=== PATIENT | female | born 1965 | race Caucasian/White ===

== ENCOUNTER → 2019-06-29 | Outpatient (CLI) | payer SELFPAY ==
[2019-06-29 10:25] LABS: Basophils % (A) 1 %; Eosinophils # (A) 0.3 k/uL (0-0.7); Eosinophils % (A) 3 %; HCT 44.2 % (34.0-46.0); HGB 14.2 gm/dL (11.4-16.0); Lymphocytes # (A) 2.6 k/uL (1.0-4.8); Lymphocytes % (A) 33 %; MCH 31.3 pg (25.0-35.0); MCHC 32.2 g/dL (31.0-37.0); MCV 97.2 fL (80.0-100.0); Mean Platelet Volume 7.7; Monocytes # (A) 0.4 k/uL (0-1.0); Monocytes % (A) 5 %; Neutrophils # (A) 4.3 k/uL (1.3-7.7); Neutrophils % (A) 56 %; Platelet Count 224 k/uL (150-450); RBC 4.54 m/uL (3.80-5.40); RDW 12.8 % (11.5-15.5); WBC 7.6 k/uL (3.8-10.6)
== END | disposition home or self-care (01) ==
LOC: LABPAT 09:23
PROVIDERS: ATTEND Obstetrics & Gynecology
DX: Z01.818 Encounter for other preprocedural examination (principal); Z01.812 Encounter for preprocedural laboratory examination
CPT/HCPCS: 36415; 85025; 93005

== ENCOUNTER 2019-07-04 06:18 | Day surgery (SDC) | payer SELFPAY ==
[2019-07-02 09:22] VITALS: BMI 22.9
--- NOTE | 2019-07-03 19:35 | P.HPOB ---
History of Present Illness H&P Date: 07/03/19 Chief Complaint: Postmenopausal bleeding This is a 54-year-old female 3 para 2 who presents for dilation and curettage with hysteroscopy secondary to postmenopausal bleeding and endometrial thickening on ultrasound. She states she has been bleeding almost daily for the fast 5-6 months. She goes through up proximally 3-4 pads daily. She states the bleeding is anywhere from bright red to brownish in color. She denies any pain or cramping. Pelvic ultrasound was performed and showed a uterus measuring 6.5 x 3.8 x 4.8 cm with an endometrial thickness of 0.8 cm and a small fibroid approximate 2 cm noted. Both ovaries appeared normal. She denies any precipita ting event or medication prior to the bleeding starting. Her last menstrual period was previously July 2017. She does experience some night sweats but no hot flashes. Obstetrical history: . History of 2 vaginal deliveries and 1 miscarriage at 16 weeks. Gynecologic history: No history of sexual transmitted diseases. Onset of menses was at age 12 and last menstrual period was July 2017. Social history: She is . She works at a home. Review of Systems Constitutional: Reports night sweats, Denies chills, Denies fever Eyes: denies blurred vision, denies pain Ears, nose, mouth and throat: Denies headache, Denies sore throat Cardiovascular: Denies chest pain, Denies shortness of breath Respiratory: Denies cough Gastrointestinal: Denies abdominal pain, Denies diarrhea, Denies nausea, Denies vomiting Genitourinary: Reports abnormal vaginal bleeding, Denies pelvic pain Menstruation: Reports postmenopausal Musculoskeletal: Denies myalgias Integumentary: Denies pruritus, Denies rash Neurological: Denies numbness, Denies weakness Psychiatric: Denies anxiety, Denies depression Past Medical History Past Medical History: Cancer, Thyroid Disorder Additional Past Medical History / Comment(s): hx. thyroid cancer 16 yrs. ago-tx. w/surgery & radiation, post menopausal bleeding History of Any Multi-Drug Resistant Organisms: None Reported Past Surgical History: Tonsillectomy Additional Past Surgical History / Comment(s): total thyroidectomy Past Anesthesia/Blood Transfusion Reactions: Postoperative Nausea & Vomiting (PONV) Past Psychological History: Anxiety, Depression Smoking Status: Former smoker Past Alcohol Use History: Rare Past Drug Use History: None Reported - Past Family History Mother Family Medical History: Cancer Additional Family Medical History / Comment(s): ovarian Medications and Allergies Home Medications Medication Instructions Recorded Confirmed Type Levothyroxine Sodium [Synthroid] 137 mcg PO DAILY 07/02/19 07/02/19 History Allergies Allergy/AdvReac Type Severity Reaction Status Date / Time No Known Allergies Allergy Verified 07/02/19 09:04 Exam Osteopathic Statement: *. No significant issues noted on an osteopathic structural exam other than those noted in the History and Physical/Consult. HEENT: Within normal limits Heart: Regular rate and rhythm Lungs: Clear to auscultation bilaterally Abdomen: Soft, nontender Pelvic exam: Uterus is mid position, nontender, with no adnexal masses or tenderness palpated. Scant bloody discharge is noted from the cervix. Extremities: Negative Homans Assessment and Plan (1) Postmenopausal bleeding Status: Acute Code(s): N95.0 - POSTMENOPAUSAL BLEEDING SNOMED Code(s): 53384221 (2) Endometrial thickening on ultrasound Status: Acute Code(s): R93.89 - ABNORMAL FINDINGS ON DX IMAGING OF OTH BODY STRUCTURES SNOMED Code(s): 452049214 Plan: Proceed with dilation and curettage with hysteroscopy. I have discussed the risks, benefits, and alternative therapies for the above- mentioned procedure and for both sedation/anesthesia as well as necessary blood products administration, if indicated, as they pertain to this patient. The patient has indicated her understanding and acceptance of the risks and procedures discussed.
[~2019-07-04 06:18] MED LIST: DEXAMETHASONE SOD PHOSPHATE 10 MG/ML 1 ML VIAL IV ONE; LACTATED RINGERS 1,000 ML IV SCH; LIDOCAINE 1% (10MG/ML) FOR IV START INTRADERMA PRN; Pre Op ABX Message 1 EACH MISC MISCELLANE ONE; fentaNYL (PF) 50 MCG/ML 2 ML AMP IV PRN
[2019-07-04 07:00] VITALS: RESP 16
[2019-07-04] MEDS ORDERED: ONDANSETRON 4 MG/2 ML VIAL IVP ONE (07:06)
[2019-07-04] MEDS ORDERED: ePHEDrine SULFATE/0.9% NACL/PF 50 MG/5 ML SYRINGE IV ONE (07:26)
[2019-07-04] MEDS ORDERED: DILTIAZEM 100 MG VIAL.PORT IV ONE (07:26)
[2019-07-04] MEDS ORDERED: KETOROLAC 30 MG/ML 1 ML VIAL ONE (07:26)
[2019-07-04] MEDS ORDERED: LIDOCAINE 1% INJ 10MG/ML (20 ML MDV) ONE (07:26)
[2019-07-04] MEDS ORDERED: MIDAZOLAM 2 MG/2 ML VIAL ONE (07:26)
[2019-07-04] MEDS ORDERED: PROPOFOL 10 MG/ML 20 ML VIAL IV ONE (07:26)
--- NOTE | 2019-07-04 07:54 | P.OP ---
Date of Procedure: 07/04/19 Preoperative Diagnosis: Postmenopausal bleeding Endometrial thickening Postoperative Diagnosis: Same Procedure(s) Performed: Dilation and curettage with hysteroscopy Anesthesia: other (Mask general) Surgeon: Harini Ochoa Estimated Blood Loss (ml): 2 Pathology: other (Endometrial curettings) Condition: stable Disposition: same day Indications for Procedure: This is a 54-year-old female 3 para 2 who presents for dilation and curettage with hysteroscopy secondary to postmenopausal bleeding and endometrial thickening on ultrasound. She states she has been bleeding almost daily for the fast 5-6 months. She goes through up proximally 3-4 pads daily. She states the bleeding is anywhere from bright red to brownish in color. She denies any pain or cramping. Pelvic ultrasound was performed and showed a uterus measuring 6.5 x 3.8 x 4.8 cm with an endometrial thickness of 0.8 cm and a small fibroid approximate 2 cm noted. Both ovaries appeared normal. She denies any precipitating event or medication prior to the bleeding starting. Her last menstrual period was previously July 2017. She does experience some night sweats but no hot flashes. Operative Findings: Uterus is retroverted, sounded to 7 cm. A moderate amount of endometrial curettings are obtained. A dyssynchronous endometrial pattern is noted. Both tubal ostia are visualized. Description of Procedure: The patient is taken to the operating room she is placed in the dorsal lithotomy position. She is prepped and draped in the normal sterile fashion. Her bladder is drained with a catheter. Examination is performed under anesthesia. Uterus is sounded be retroverted, with no adnexal masses palpated. Next a weighted speculum was placed in the patient's vagina and a right angle retractor was used to visualize the cervix. The anterior lip of the cervix is grasped with a single-tooth tenaculum. Next the uterus is sounded to 7 cm. Cervix is gently dilated with Cadet dilators until a hysteroscope could be passed. Hysteroscopy is performed using normal saline. The above noted findings are made and pictures are taken. Next a polyp forceps was introduced with a moderate amount of tissue obtained. Next a medium-size sharp curet was introduced and sharp curettage was performed until a gritty texture was noted. A moderate amount of endometrial curettings were obtained. All instruments are removed from the vagina single-tooth tenaculum is removed no active bleeding is noted. All sponge counts are correct. The patient is then taken to recovery room in stable condition.
[2019-07-04 08:04] VITALS: TEMP 97.6
[2019-07-04 08:32] VITALS: BP 94/51
[2019-07-04 09:01] VITALS: PULSE 88
== END 2019-07-04 09:29 | disposition home or self-care (01) ==
LOC: OR 06:18
PROVIDERS: ATTEND Obstetrics & Gynecology
DX: C54.1 Malignant neoplasm of endometrium (principal); N95.0 Postmenopausal bleeding; N85.4 Malposition of uterus; E07.9 Disorder of thyroid, unspecified; E89.0 Postprocedural hypothyroidism; F41.9 Anxiety disorder, unspecified; F32.9 Major depressive disorder, single episode, unspecified; Z87.891 Personal history of nicotine dependence; Z79.890 Hormone replacement therapy; Z85.850 Personal history of malignant neoplasm of thyroid; Z92.3 Personal history of irradiation; Z90.89 Acquired absence of other organs; Z80.41 Family history of malignant neoplasm of ovary
CPT/HCPCS: 88305; 58558; J2250; J1100; J2405; J2001; J1885; J2704

== ENCOUNTER → 2019-08-01 | Outpatient (CLI) | payer SELFPAY ==
--- NOTE | 2019-08-01 08:22 | XR ---
EXAMINATION TYPE: XR chest 2V DATE OF EXAM: 08/01/2019 COMPARISON: NONE HISTORY: Endometrial carcinoma. Preoperative chest x-ray. TECHNIQUE: Frontal and lateral views of the chest are obtained. FINDINGS: There is no focal air space opacity, pleural effusion, or pneumothorax seen. The cardiac silhouette size is within normal limits. The osseous structures are intact. Very minimal degenerati ve change of the spine. IMPRESSION: No acute cardiopulmonary process.
--- NOTE | 2019-08-01 10:17 | CT ---
EXAMINATION TYPE: CT abdomen pelvis wo/w con DATE OF EXAM: 08/01/2019 HISTORY: Endometrial cancer CT DLP: 629.7mGycm Automated Exposure Control for Dose Reduction was Utilized. CONTRAST: CT scan of the abdomen and pelvis is performed with IV Contrast, patient injected with 100 mL of Isov ue 300. COMPARISON: None. FINDINGS: LUNG BASES: Very mild emphysematous changes of the lung bases and right basilar subsegmental dependen t atelectasis. LIVER/GB: There is a fluid attenuated 9 mm hepatic cyst in segment IVb of the liver on image 18. A se cond cyst measures 8 mm on image 10. Other small cysts measure up to 1.2 cm. Multiple other punctate hypoattenuated subcentimeter lesions are seen in the liver measuring 1 to 4 mm, too small to accurate ly characterize. No intrahepatic biliary ductal dilatation. No radiopaque calculi in the gallbladder and CT. PANCREAS: No significant abnormality is seen. SPLEEN: No splenomegaly. ADRENALS: No nodularity or thickening. KIDNEYS: Kidneys enhance and excrete symmetrically without hydronephrosis. BOWEL: No dilatation is seen. Mild degree colonic fecal stasis. UTERUS/ADNEXA: Endometrium is heterogenous in abnormally thickened measuring in this patient with kno wn endometrial carcinoma. LYMPH NODES: No greater than 1cm abdominal or pelvic lymph nodes are appreciated. OSSEOUS STRUCTURES: Minimal multilevel degenerative disc disease of the spine. No destructive osseous process. Punctate 3 mm right femoral sclerotic lesion, most commonly a bone island. OTHER: Mild atherosclerosis of the abdominal aorta and its branches. IMPRESSION: 1. No evidence of intra-abdominal or pelvic metastasis. Endometrium is thickened and heterogenous in this patient with known endometrial carcinoma. No local adenopathy. 2. Multiple hepatic cysts and other hepatic lesions that are too small to accurately characterize michael suring 1-4 mm. 3. Sclerotic focus of the right femoral head likely relates to a small bone island.
== END | disposition home or self-care (01) ==
LOC: RADCTMAIN 07:50
PROVIDERS: ATTEND Obstetrics & Gynecology
DX: C54.1 Malignant neoplasm of endometrium (principal); K76.89 Other specified diseases of liver
CPT/HCPCS: 71046; 74178; Q9967

== ENCOUNTER → 2020-09-17 | Outpatient (CLI) | payer SELFPAY ==
--- NOTE | 2020-09-17 10:02 | CT ---
EXAMINATION TYPE: CT ChestAbdPelvis w con DATE OF EXAM: 09/17/2020 COMPARISON: 08/01/2019 HISTORY: Endometrial cancer CT DLP: 1106 mGycm CONTRAST: CT scan of the chest, abdomen and pelvis is performed with Oral Contrast and with IV Contrast, patien t injected with 100 mL of Isovue 300. CT Chest: LUNGS: The lungs are clear and free of infiltrate or atelectasis. No pulmonary nodule or mass is det ected. No pleural effusion or CT evidence of interstitial lung disease. MEDIASTINUM: Thoracic aorta is of normal caliber. The heart is not enlarged. No evidence for media stinal mass or adenopathy. HILAR STRUCTURES: No evidence for mass. No hilar adenopathy is appreciated. OTHER: No significant abnormality. CONTRAST CT ABDOMEN AND PELVIS FINDINGS: LIVER/GB: No calcified gallstones. Hepatic cysts are redemonstrated. Biliary tree is of normal marga leora. PANCREAS: No inflammation. No distinct mass. SPLEEN: No splenic enlargement. No lesion seen. ADRENALS: No nodule. No thickening. KIDNEYS/BLADDER: No hydronephrosis. No nephrolithiasis. No disctinct renal mass. BOWEL: Normal appendix. Normal bowel caliber. No inflammation. GENITAL ORGANS: Hysterectomy changes. No evidence of pelvic mass. LYMPH NODES: No greater than 1cm abdominal or pelvic lymph nodes are appreciated. AORTA: No significant abnormality. OSSEOUS STRUCTURES: No significant abnormality is seen. OTHER: No significant additional abnormality is seen. IMPRESSION: 1. No evidence for metastatic disease at this time. Hysterectomy changes.
== END | disposition home or self-care (01) ==
LOC: RADCTMAIN 07:26
PROVIDERS: ATTEND Obstetrics & Gynecology
DX: C54.1 Malignant neoplasm of endometrium (principal)
CPT/HCPCS: 71260; 74177; Q9967

== ENCOUNTER 2021-06-23 08:54 | Day surgery (SDC) | payer SELFPAY ==
[2021-06-21 15:56] VITALS: BMI 23.3
[~2021-06-23 08:54] MED LIST changes: -DEXAMETHASONE SOD PHOSPHATE 10 MG/ML 1 ML VIAL IV ONE; -Pre Op ABX Message 1 EACH MISC MISCELLANE ONE; -fentaNYL (PF) 50 MCG/ML 2 ML AMP IV PRN
[2021-06-23 09:26] VITALS: TEMP 97
[2021-06-23] MEDS ORDERED: PROPOFOL 10 MG/ML 20 ML VIAL IV ONE (09:44)
[2021-06-23] MEDS ORDERED: LIDOCAINE 1% INJ 10MG/ML (20 ML MDV) ONE (09:44)
--- NOTE | 2021-06-23 10:14 | P.PCN ---
Date of Procedure: 06/23/21 Procedure(s) Performed: BRIEF HISTORY: Patient is a 56-year-old pleasant white female scheduled for an elective colonoscopy as a part of screening for colon cancer and Harley syndrome. 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 She is family history of uterine cancer and eczema mother and colon cancer in a grandfather 60s. PROCEDURE PERFORMED: Colonoscopy biopsy and snare Polypectomy. PREOPERATIVE DIAGNOSIS: Screening for colon cancer and personal history of Harley syndrome. IV sedation per Anesthesia. PROCEDURE: After informed consent was obtained, the patient, was brought into the endoscopy unit. IV sedation was administered by Anesthesia under continuous monitoring. Digital rectal examination was normal. Initially the Olympus CF-160 flexible video colonoscope was then inserted in the rectum, gradually advanced into the cecum without any difficulty. Careful examination was performed as the scope was gradually being withdrawn. Ileocecal valve and the appendiceal orifice were visualized and appeared normal. Prep was excellent. Mucosa of the cecum, ascending colon, appeared normal. In the transverse colon there was a 3 mm polyp that was removed by cold biopsy. In the sigmoid colon there was a 5 mm polyp removed by snare polypectomy. In the rectosigmoid colon there was a 1 cm polyp removed by snare polypectomy. Rest of the, sigmoid colon, and rectum appeared normal. Retroflexion was performed in the rectum and no lesions were seen. The patient tolerated the procedure well. IMPRESSION: 3 mm transverse colon polyp status post-cold biopsy 5 mm sigmoid colon polyp status post polypectomy 1 cm rectosigmoid polyp status post polypectomy RECOMMENDATIONS: Findings of this examination were discussed with the patient as well as a family. She was advised to follow with the biopsy results. If the biopsy results adenoma she can have a repeat colonoscopy in 2 years because of personal history of Harley syndrome.
[2021-06-23 10:33] VITALS: BP 105/70; PULSE 70; RESP 16
== END 2021-06-23 10:59 | disposition home or self-care (01) ==
LOC: ORWHC2ENDO 08:54
PROVIDERS: ATTEND Internal Medicine Gastroenterology
DX: Z12.11 Encounter for screening for malignant neoplasm of colon (principal); Z15.09 Genetic susceptibility to other malignant neoplasm; L30.9 Dermatitis, unspecified; Z85.42 Personal history of malignant neoplasm of other parts of uterus; Z90.710 Acquired absence of both cervix and uterus; Z80.0 Family history of malignant neoplasm of digestive organs; D12.7 Benign neoplasm of rectosigmoid junction; D12.3 Benign neoplasm of transverse colon; Z85.850 Personal history of malignant neoplasm of thyroid; Z79.890 Hormone replacement therapy
CPT/HCPCS: 88305; 45380; 45385; J2001; J2704

== ENCOUNTER 2021-12-01 09:48 | Day surgery (SDC) | payer SELFPAY ==
[2021-11-29 09:14] VITALS: BMI 23.8
[2021-12-01 10:23] VITALS: TEMP 97.2
[2021-12-01] MEDS ORDERED: PROPOFOL 10 MG/ML 20 ML VIAL IV ONE (11:11)
--- NOTE | 2021-12-01 11:32 | P.PCN ---
Date of Procedure: 12/01/21 Procedure(s) Performed: BRIEF HISTORY: Patient is a 56-year-old pleasant white female scheduled for an elective colonoscopy as a part of surveillance of Harley syndrome. She had a colonoscopy in July 31 and was noted to have a 1 cm rectal sigmoid polyp that was removed by snare polypectomy and biopsies revealed adenoma with high- grade dysplasia. she is hence scheduled for a surveillance colonoscopy in 6 months. PROCEDURE PERFORMED: Colonoscopy with biopsy . PREOPERATIVE DIAGNOSIS: Ihistory of Harley syndrome, followed colon polyps with high-grade dysplasia V sedation per Anesthesia. PROCEDURE: After informed consent was obtained, the patient, was brought into the endoscopy unit. IV sedation was administered by Anesthesia under continuous monitoring. Digital rectal examination was normal. Initially the Olympus CF-160 flexible video colonoscope was then inserted in the rectum, gradually advanced into the cecum without any difficulty. Careful examination was performed as the scope was gradually being withdrawn. Ileocecal valve and the appendiceal orifice were visualized and appeared normal. Prep was excellent. Mucosa of the cecum, ascending colon, transverse colon, descending colon, sigmoid colon, and rectum appeared normal. in the rectum there was a 3 mm and 4 mm sessile polyp removed by cold biopsy. Retroflexion was performed in the rectum and no lesions were seen. The patient tolerated the procedure well. IMPRESSION: 3 millimeters and 4 mm rectal polyp status post removal by cold biopsy Rest of the colon appeared normal RECOMMENDATIONS: Findings of this examination were discussed with the patient.as well as a family. She was advised to follow with the biopsy results. If the biopsy reveals adenoma she can have a repeat colonoscopy in 2 years
[2021-12-01 11:51] VITALS: BP 115/65; PULSE 77; RESP 20
== END 2021-12-01 12:15 | disposition home or self-care (01) ==
LOC: ORWHC2ENDO 09:48
PROVIDERS: ATTEND Internal Medicine Gastroenterology
DX: Z12.11 Encounter for screening for malignant neoplasm of colon (principal); K62.1 Rectal polyp; Z86.010 Personal history of colon polyps; E07.9 Disorder of thyroid, unspecified; Z79.890 Hormone replacement therapy; Z87.891 Personal history of nicotine dependence; Z80.41 Family history of malignant neoplasm of ovary
CPT/HCPCS: 88305; 45380; J2704

== ENCOUNTER → 2022-11-22 | Outpatient (CLI) | payer SELFPAY ==
--- NOTE | 2022-11-22 15:31 | XR ---
EXAMINATION TYPE: XR chest 2V DATE OF EXAM: 11/22/2022 3:25 PM COMPARISON: Chest radiographs from 08/01/2019, CT chest abdomen pelvis 09/17/2020. TECHNIQUE: XR chest 2V Frontal and lateral views of the chest. CLINICAL INDICATION:Female, 57 years old with history of C54.1; FINDINGS: Lungs/Pleura: There is no evidence of pleural effusion, focal consolidation, or pneumothorax. Pulmonary vascularity: Unremarkable. Heart/mediastinum: Cardiomediastinal silhouette is unremarkable. Musculoskeletal: No acute osseous pathology. IMPRESSION: No acute cardiopulmonary disease/process.
--- NOTE | 2022-11-23 08:00 | CT ---
EXAMINATION TYPE: CT abdomen pelvis w con CT DLP: 410.0 mGycm, Automated exposure control for dose reduction was used. DATE OF EXAM: 11/22/2022 5:10 PM COMPARISON: CT abdomen pelvis most recent from 09/17/2020, 08/01/2019 CLINICAL INDICATION:Female, 57 years old with history of C54.1; Endometrial ca TECHNIQUE: Axial CT of the abdomen and pelvis. Sagittal and coronal reformats were created on a [employer] workstation. Contrast used:100ml mL of Isovue 300 with IV Contrast, (none if empty) Oral contrast used: with Oral Contrast (none if empty) FINDINGS: LOWER CHEST: Unremarkable ABDOMEN LIVER: Similar appearing hypoechoic lesions within the liver compared to immediate prior which appear to represent cysts. One lesion within the dome appears larger measuring 13 x 8 mm and previously 10 x 6 mm. GALLBLADDER AND BILE DUCTS: Unremarkable. PANCREAS: Unremarkable. SPLEEN: Unremarkable. ADRENAL GLANDS: Unremarkable. KIDNEYS AND URETERS: No evidence of hydronephrosis or renal calculus. The ureters are unremarkable. PELVIS BLADDER: Unremarkable REPRODUCTIVE: Uterus is surgically absent. ABDOMEN & PELVIS STOMACH AND BOWEL: No evidence of bowel obstruction. PERITONEUM/RETROPERITONEUM: No evidence of pneumoperitoneum or free fluid. VASCULATURE: No evidence of aortic aneurysm. MUSCULOSKELETAL: No acute osseous abnormalities LYMPH NODES: No gross evidence for lymphadenopathy. SOFT TISSUE/ABDOMINAL WALL: Fat-containing umbilical hernia. IMPRESSION: Enlarging lesion in the dome of the liver compared to immediate prior 09/17/2020. While this could rep resent an enlarging cyst, metastatic disease is not excluded, a MRI with and without IV contrast live r mass protocol is recommended. No evidence for lymphadenopathy.
== END | disposition home or self-care (01) ==
LOC: RADCTMAIN 15:00
PROVIDERS: ATTEND Obstetrics & Gynecology
DX: C54.1 Malignant neoplasm of endometrium (principal); K76.9 Liver disease, unspecified
CPT/HCPCS: 71046; 74177; Q9967